=== PATIENT | male | born 1950 | race Caucasian/White ===

== ENCOUNTER 2018-04-28 20:47 | Emergency (ER) | payer MEDICARE, OTHER ==
[~2018-04-28] VITALS: Ht 182.9 cm; Wt 63.0 kg
[~2018-04-28 20:47] MED LIST: ASPI-1071 PO; ATOR10TA PO; ATOR20TA PO; CITA20TA19 PO; CLOP75TA35 PO; FINA5TAB11 PO; LISI2.5T2 PO; METF750T2 PO; METO25TA6 PO; TAMS0.4C32 PO; TRAZ150T78 PO
[2018-04-28] MEDS ORDERED: FLO0.4C PO (22:56)
[2018-04-28 23:27] VITALS: BP 123/72
== END 2018-04-28 23:27 | disposition home or self-care (01) ==
LOC: ER 20:48
DX: R31.9 Hematuria, unspecified (principal); E11.9 Type 2 diabetes mellitus without complications
CPT/HCPCS: 99284